=== PATIENT | female | born 1945 | race Caucasian/White ===

== ENCOUNTER 2017-11-15 14:54 | Emergency (ER) | payer MEDICARE, OTHER ==
[~2017-11-15] VITALS: Ht 157.5 cm; Wt 53.5 kg
[~2017-11-15 14:54] MED LIST: ATENOLOL25 MG ORAL; HYDROCHLOROTHIA25 MG ORAL; VITAMIN D250000 UNI1 ORAL; ZETIA10 MG ORAL
[2017-11-15 15:09] VITALS: BP 130/74
[2017-11-15] MEDS ORDERED: Cyclobenzaprine 10mg Tab ORAL ONE (15:15)
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
[2017-11-15 15:32] VITALS: BP 130/74
== END 2017-11-15 16:07 | disposition left against medical advice (07) ==
LOC: EMR 15:20
DX: R07.89 Other chest pain (principal); V43.62XA Car passenger injured in collision with other type car in traffic accident, initial encounter; Y92.410 Unspecified street and highway as the place of occurrence of the external cause; I10 Essential (primary) hypertension
CPT/HCPCS: 99284